=== PATIENT | female | born 1995 | race African-American/Black ===

== ENCOUNTER 2016-08-31 08:05 | Emergency (ER) | payer OTHER ==
[~2016-08-31] VITALS: Ht 167.6 cm; Wt 54.4 kg
[~2016-08-31 08:05] MED LIST: MAALOX MAXIMUM355 M1 PO; METRONIDAZOLE500 MG ORAL; OMEPRAZOLE20 M3 ORAL
[2016-08-31 08:20] VITALS: BP 122/73
[2016-08-31] MEDS ORDERED: ANUSOL-HC25 MG RECTAL (09:12)
[2016-08-31] MEDS ORDERED: AMERICAINE28 G1 TP (09:12)
[2016-08-31] MEDS ORDERED: LACTULOSE20 GM/301 ORAL (09:12)
[2016-08-31 09:15] VITALS: BP 122/73
--- NOTE | 2016-08-31 21:20 | Emergency Room Report ---
History of Present Illness General Chief Complaint: General Complaint Source: Patient Present Illness HPI Patient presents with painful hemorrhoid. Straining with stool. Rarely has blood. Pain 10/10, burning/aching, localized to rectum. Has had problems in the past, but not this severe. No abdominal pain, dysuria, not . No fevers. No vomiting or nausea. Allergies: Uncoded Allergies: PET DANDRUF (Allergy, Unknown, 10/28/14) POLLEN (Allergy, Unknown, 10/28/14) Patient History Past Medical History: see triage record Social History Narrative with significant other Last Menstrual Period: 08/12/16 Now: No Reviewed Nursing Documentation: PMH: Agreed, PSxH: Agreed Nursing Documentation-PMH Past Medical History: No Stated History Review of Systems All Other Systems: negative except mentioned in HPI Physical Exam Vital Signs Date Time Temp Pulse Resp B/P Pulse Ox O2 Delivery O2 Flow Rate FiO2 08/31/16 08:13 98.4 103 16 122/73 98 Room Air Sp02 EP Interpretation: reviewed, normal General Appearance: well appearing, no apparent distress, GCS 15 Head: normocephalic, atraumatic Eyes: bilateral eye normal inspection ENT: hearing grossly normal, normal voice Neck: full range of motion, supple Respiratory: no respiratory distress, speaking full sentences Gastrointestinal: normal bowel sounds, non tender, soft, non-distended Rectal: other - thrombosed hemorrhoid Musculoskeletal: digits/nails normal, gait/station normal, normal range of motion Neurologic: alert, normal gait, grossly normal Psychiatric: mood/affect normal Skin: no rash Medical Decision Making Diagnostic Impression: Primary Impression: Hemorrhoid Qualified Codes: K64.3 - Fourth degree hemorrhoids Additional Impression: Constipation Qualified Codes: K59.00 - Constipation, unspecified ER Course Patient with painful hemorrhoid. This is a clinical diagnosis. No evidence of active bleeding. Discussed tx options with I and D. Patient elects for medical treatment. Discussed need to modify diet and toilet habits. Patient stable for outpatient observation and treatment. Last Vital Signs Date Time Temp Pulse Resp B/P Pulse Ox O2 Delivery O2 Flow Rate FiO2 08/31/16 09:15 98.4 103 16 122/73 98 Room Air Status: unchanged Disposition: HOME, SELF-CARE Condition: Stable Scripts Lactulose (LACTULOSE*) 20 Gm/30 Ml Solution 30 ML ORAL BID for Constipation, #240 ML 0 Refills Prov: Jimmy Brennan M.D. 08/31/16 Benzocaine (AMERICAINE) 28 Gm Oint...g. 1 APPLIC TP BID Y for For Pain, #30 GM 1 Refill Prov: Jimmy Brennan M.D. 08/31/16 Hydrocortisone Acetate* (ANUSOL-HC*) 25 Mg Supp.rect 1 SUPP RECTAL TWICE A DAY, #14 SUPP Prov: Jimmy Brennan M.D. 08/31/16 Patient Instructions: Constipation, Adult, Hemorrhoids Additional Instructions: Tylenol or advil might help with the pain. Elevation (stay on your stomach). Jimmy Brennan M.D. Aug 31, 2016 21:20
== END 2016-08-31 09:15 | disposition home or self-care (01) ==
LOC: EMR 08:44
DX: K64.9 Unspecified hemorrhoids (principal); K59.00 Constipation, unspecified; Z91.048 Other nonmedicinal substance allergy status
CPT/HCPCS: 99284